=== PATIENT | female | born 1985 | race Caucasian/White ===

== ENCOUNTER → 2020-11-24 15:25 | Outpatient (CLI) | payer BC, SELFPAY ==
--- NOTE | ~2020-11-24 | XR_ITS ---
EXAMINATION: XR thoracic spine 2V DATE: 11/24/2020 16:29 INDICATION: Thoracic spine pain. TECHNIQUE: AP and lateral views of the thoracic spine were obtained. COMPARISON: Cervical and lumbar spine radiographs dated 11/24/2020 FINDINGS: As noted on separate report for the cervical spine there are bilateral C7 cervical ribs. There are 11 more caudal paired rib-bearing thoracic segments and (T1-T11). Some degree of levocurvature between C7 and T5. Sagittal alignment is normal. Vertebral body heights are normal. Mild disc height loss at T3-T4 through T9-T10. Visualized portions of the lungs are clear. No pleural effusion or pneumothorax . Cardiomediastinal silhouette is normal. IMPRESSION: 1. Mild upper thoracic levocurvature and mild mid to lower thoracic spondylosis. 2. Bilateral ribs at C7 as well as at T1-T11. Reviewed, dictated and finalized at location A. ICE LEARNING COORDINATOR IMPRESSION: 1. Mild upper thoracic levocurvature and mild mid to lower thoracic spondylosis . 2. Bilateral ribs at C7 as well as at T1-T11.
--- NOTE | ~2020-11-24 | XR_ITS ---
EXAMINATION: XR lumbar spine 2-3V DATE: 11/24/2020 16:29 INDICATION: Lumbar spine pain. TECHNIQUE: Anteroposterior and lateral views of the lumbar spine, and cone-down lateral view of the l umbosacral junction were obtained. COMPARISON: None. FINDINGS: There are 6 nonrib-bearing lumbar segments (L1-L6). Alignment is normal. Vertebral body heights are n ormal. Mild disc height loss at L6 S1. Mild facet osteoarthritis in the mid and lower lumbar spine. IMPRESSION: 1. 6 nonrib-bearing lumbar segments with minimal to mild lower lumbar spondylosis. Reviewed, dictated and finalized at location A. INUOUS WELD PIPE MILL SUPERVISOR IMPRESSION: 1. 6 nonrib-bearing lumbar segments with minimal to mild lower lumbar spondylos is.
--- NOTE | ~2020-11-24 | XR_ITS ---
EXAMINATION:XR_CERV2-3V_CR DATE: 11/24/2020 16:29 INDICATION: Central cervical spine pain. TECHNIQUE: AP, lateral, lateral swimmers and odontoid views of the cervical spine are provided. COMPARISON: None FINDINGS: Alignment is normal. Odontoid is intact. Normal atlantoaxial interval. Vertebral body heights are no rmal. Disc spaces are normal. Bilateral C7 cervical ribs. Mild to moderate bilateral facet osteoarthr itis at C7-T1. Mild facet osteoarthritis at a few of the more cephalad cervical levels. Prevertebral soft tissues are normal. The visualized apices of the lungs are clear. IMPRESSION: 1. Cervical facet osteoarthritis, mild to moderate at C7-T1 and mild in the more cephalad cervical sp ine. 2. Developmental variant C7 bilateral cervical ribs. Reviewed, dictated and finalized at location A. PROCUREMENT COORDINATOR IMPRESSION: 1. Cervical facet osteoarthritis, mild to moderate at C7-T1 and mild in the mor e cephalad cervical spine. 2. Developmental variant C7 bilateral cervical ribs.
--- NOTE | ~2020-11-24 | XR_ITS ---
EXAMINATION: XR pelvis 1-2V DATE: 11/24/2020 16:29 INDICATION: Bilateral hip pain. TECHNIQUE: An anteroposterior view of the pelvis was obtained. COMPARISON: None. FINDINGS: Alignment is normal. No fracture or suspected avascular necrosis. Very mild bilateral hip osteoarthri tis with minimal nonuniform joint space during at the superolateral aspect of the the left and right hips. Bilateral sacroiliac joint spaces are relatively preserved. A few phleboliths in the pelvis. IMPRESSION: 1. Very mild bilateral hip osteoarthritis. Reviewed, dictated and finalized at location A. TICE CONSULTANT
== END ==
PROVIDERS: Visit Provider Chiropractor
DX: M16.0 Bilateral primary osteoarthritis of hip (principal); M47.896 Other spondylosis, lumbar region; M47.894 Other spondylosis, thoracic region; M50.30 Other cervical disc degeneration, unspecified cervical region
CPT/HCPCS: 72040; 72070; 72100; 72170

== ENCOUNTER → 2021-10-19 01:26 | Outpatient (CLI) | payer OTHER, SELFPAY ==
[2021-10-19 21:23] LABS: SARS-CoV-2 RNA PCR Negative
== END ==
PROVIDERS: PCP Family Medicine; Visit Provider Physician Assistant
DX: R05.9 Cough, unspecified (principal); Z20.822 Contact with and (suspected) exposure to COVID-19
CPT/HCPCS: C9803; U0003; U0005

== ENCOUNTER 2022-06-30 11:44 | Emergency (ER) | payer BC, SELFPAY ==
--- NOTE | 2022-06-30 11:50 | ED.SKABFB ---
HPI - Skin/Abscess/Foreign Bdy General Chief complaint: Skin/Abscess/Foreign Body Stated complaint: red spots on body Time Seen by Provider: 06/30/22 11:51 Source: patient Mode of arrival: ambulatory Limitations: no limitations History of Present Illness HPI narrative: Ms. Arriaga is a 37-year-old female patient presenting to the clinic today with complaints of red spot on her inner thigh x 3 days. She reports she first noticed this on Tuesday. She reports that she has been around them sores over the last couple years. States she has seen her PCP as well as a field care coordinator and antibiotic prescriptions were prescribed for her however she did not finish either of these antibiotics. She reports that the field care coordinator cultured the area and it was negative for any MRSA or staph. Reports that it is draining a little bit today. States it is tender to touch. No fever or chills Related Data Allergies Allergy/AdvReac Type Severity Reaction Status Date / Time metoprolol AdvReac Severe fatigue, Verified 06/29/22 17:11 depression Review of Systems Review of Systems: Pertinent positives per HPI. Patient denies any fever, chills, rash, headache, visual changes, dizziness, cough, runny nose, sore throat, shortness of breath, chest pain, palpitations, nausea, vomiting, diarrhea, constipation, abdominal pain, or any urinary issues. PMFSH Social History Social History Smoking status: Never smoker Alcohol intake: current Substance use: never Gender identity (if verbalized by the patient): Female Comments At the time of my signature, I reviewed and agree with the nursing past medical, surgical, social, and family history. There is no relevant family history pertinent to the patient complaint. Exam Narrative: General: Well-developed, well nourished, in no apparent distress Head: Normocephalic, atraumatic. Cardio: Regular rate and rhythm, s1 and s2 normal, no murmur appreciated. Resp: Clear to auscultation bilaterally, no rhonchi, rales, wheezing or rubs. Integumentary: Kemp, warm, and dry, nonindurated mildly raised red open sore size of a andrew. Mild tenderness to palpation without any notable discharge upon expression. Does have a little yellowish discharge to the Band-aid Course Course Emergency Course: Portions of this record may have been created with voice recognition software. Level of Care: Express Care Visit Vital Signs Vital signs: Vital signs reviewed MDM - Skin/Abscess/Foreign Bdy MDM Narrative Medical decision making narrative: At the time of visit patient is resting comfortably on exam table. I suspect that the patient has a bacterial skin sore. I will place her on some topical mupirocin cream as well as discussed using this for her nares to help avoid recurrent infections if this is associated with MRSA. She voiced understanding and agrees to treatment plan. Differential Diagnosis Differential diagnosis: Likely abscess of skin or subcutaneous tissue, cellulitis and impetigo Discharge Plan Discharge Clinical Impression: Skin infection Patient Disposition: Home, Self-Care Condition: Stable Instructions: Antibiotic Form, Folliculitis (ED) Additional Instructions: Keep area clean and dry Keep wound covered if draining Apply mupirocin cream to the wound twice daily as well as intra nares twice daily x7 days May take Tylenol/Motrin as needed for pain Practice good handwashing technique Follow-up with your PCP in 7 days if symptoms persist or sooner if they worsen Prescriptions: New mupirocin 2 % ointment 1 applic topical BID 7 Days Qty: 22 0RF Rx Instructions: apply to right thigh wound as well as apply ointment inside nose using a q-tip BID x 7 days No Action metoprolol succinate 50 mg tablet extended release 24 hr 50 mg PO DIRECTED nifedipine 30 mg tablet extended release 24hr 30 mg PO
[2022-06-30 11:51] VITALS: BP 138/88; PULSE 81; RESP 16; TEMP 36.9; O2SAT 100
== END 2022-06-30 12:11 | disposition home or self-care (01) ==
PROVIDERS: Emergency Provider Nurse Practitioner Family; PCP Family Medicine
DX: L08.9 Local infection of the skin and subcutaneous tissue, unspecified (principal); I10 Essential (primary) hypertension
CPT/HCPCS: 99213; G0463

== ENCOUNTER 2024-12-01 13:17 | Emergency (ER) | payer OTHER, SELFPAY ==
--- OUTSIDE RECORDS SUMMARY | 2024-12-01 13:19 | XMS_ITS | Referral Summary ---
Author Organization [facility] Address [address] [place] [address] Care Team Providers Care Carpet Installer Name Role Phone Arian Ellis MD Primary Care Provider [phone] Allergies Active Allergy Reactions Criticality Noted Date Comments Sulfa (Sulfonamide Antibiotics) Other (See comments) Low 11/30/2021 Urinary frequency Medications loratadine (CLARITIN) 10 mg tablet Take 1 tablet (10 mg total) by mouth daily Active acetaminophen 500 mg capsuleIndication s:Fever,Pain Take 2 capsules (1,000 mg total) by mouth every 6 (six) hours as needed for pain 90 tablet 1 2 Active NIFEdipine (NIFEdipine XL) 30 mg 24 hr tabletIndications :Chronic hypertension Take 1 tablet (30 mg total) by mouth daily 90 tablet 2 Active zolpidem (AMBIEN) 5 mg tablet 3 Active Active Problems Problem Noted Date Diagnosed Date Vaginal delivery 01/03/2022 Overview (01/07/2022): # ID: Afebrile. No signs/symptoms of infection. #COVID-19: COVID recovered # Heme: EBL 350 mL. No symptoms acute blood loss anemia. # cHTN: On [id number]. Blood pressures well controlled. Patient remains asymptomatic . Admission CBC/CMP wnl, UPC unable to calculate. Enrolled in home BP monitoring. # Anxiety: On no medications, SW consult PP for recourses. Consult placed. # GI/: Tolerating PO. Voiding spontaneously. # Pain: Controlled with above regimen. # Post DVT prophylaxis: The patient has the following MAJOR risk factors none and the following MINOR risk factors BMI 30-39 and age >/= 35. enoxaparin 40 mg daily ordered for VTE prophylaxis. # MOC: Declines until visit # MOF: # COVID Vaccination Status: S/p COVID infection 10/17. Previously received primary series, due for booster. Recommendations reviewed with pt, she accepts booster dose, ordered. # Disposition: Follow up task not sent. Desires discharge home today. Resolved Problems Problem Noted Date Diagnosed Date Resolved Date Supervision of other normal , antepartum 02/18/2022 Overview (01/10/2022): -AMA -Chronic hypertension--Nifedipine 30mg XL, plan ASA, serial growth ( per US starting @ 24wks), NSTs at 32 weeks; growth 31% at 32 weeks -01/07/22 PP BP's 150's/high 90's- Nifed XL to 60 mg HS, if cont. To be >150 increase to 90 mg q HS Hx of anxiety disorder, exac by unplanned , + panic attacks, getting better. Unplanned , desired, FOB with min involvement - Plan PBHS - Low lying placenta, pelvic rest reviewed 08/26, Resolved @ 24 wk US - COVID+ 10/17/2021 -rrIOL @ 38.2, on 01/03/22 @ 1999 [x] Labs: completed, UTI @ NOB, macrobid 07/13, BECKI negative [x] Genetic Screening: nml cfDNA, considering invitae [x] Baby ASA:recommended [x] 1hr GCT at 24-28wks: nml, 92 [x] Tdap (27-36wks):1/6/-hr [x] Flu Shot: 12-hr [] Rhogam (if Rh neg): n/a A+ [x] GBS at 36 wks: neg [x] [] control method: plans abstinence [x] 39 weeks discussion of IOL, scheduled 01/03/22 @ 1999 [x] Mode of delivery: plan [] For C/S bottle of CHG 4% and hand out provided @ 36wks Boy, circ+, , Bard and Didrikson for ped. Teaching: [x] 1st visit [x] 28-30 week [x] 36 week Immunizations Name Administration Dates Next Due Influenza, Quadrivalent, Sandy l Culture-based MDCK, Preservative Free, Antibiotic Free, Intramuscular 08/28/2021 Pfizer SARS-CoV-2 Monovalent Vaccination (12+ Yrs) FRANCO-READY TO USE 01/07/2022 Tdap 10/22/2021 Social History Tobacco Use Types Packs/Day Years Used Date Smoking Tobacco: Never Smokeless Tobacco: Never Tobacco Cessation:Counseling Given: Not Answered Alcohol Use Standard Drinks/Week Comments Yes 0 (1 standard drink = 0.6 oz pur e alcohol) Humiliation, Afraid, Rape, and Kick questionnair e Answer Date Recorded Fear of Current or Ex-Partner No Emotionally Abused No 11/24/2020 Physically Abused No 11/24/2020 Sexually Abused No 11/24/2020 Social Connection and Isolat ion Panel [NHANES] Answer Date Recorded In a typical week, how many times do you talk on the phone with family, friends, or neighbors? More than three times a week 01/06/2022 How often do you get togethe r with friends or relatives? More than three times a week 01/06/2022 How often do you attend chur or muslim services? Never 01/06/2022 Do you belong to any clubs o r organizations such as samaritan groups, unions, fraternal or athletic groups, or school groups? No 01/06/2022 How often do you attend meet ings of the clubs or organizations you belong to? Never 01/06/2022 Are you , , di vorced, , never , or living with a partner? Never 01/06/2022 AUDIT-C Answer Date Recorded Q1: How often do you have a drink containing alc ohol? Never 01/03/2022 Average Number of Drinks Not on file 022 Q3: How often do you have si x or more drinks on one occasion? Never 01/03/2022 Overall Financial Resource Strain (CARDIA) Answe r Date Recorded How hard is it for you to pa y for the very basics like food, housing, medical care, and heating? Not hard at all 01/06/2022 PHQ-2 Answer Date Recorded PHQ-2 Total Score (If total score is 3 or more points, staff should administer the PHQ-9) 0 03/08/2023 Exercise Vital Sign Answer Date Recorde d Days of Exercise per Week 3 days 2020 Minutes of Exercise per Session 40 min 11/24/2020 Hunger Vital Sign Answer Date Recorded Within the past 12 months, y ou worried that your food would run out before you got the money to buy more. Never true 01/07/20 22 Within the past 12 months, t he food you bought just didn't last and you didn't have money to get more. Never true 01/06/2022 PRAPARE - Transportation Answer Date Re corded In the past 12 months, has l ack of transportation kept you from medical appointments or from getting medications? No 12/16 In the past 12 months, has l ack of transportation kept you from meetings, work, or from getting things needed for daily living? No 01/06/2022 Housing Stability Vital Sign Answer Darío e Recorded In the last 12 months, was t here a time when you were not able to pay the mortgage or rent on time? No 01/06/2022 In the last 12 months, how many places have you lived? 1 01/06/2022 In the last 12 months, was t here a time when you did not have a steady place to sleep or slept in a senior care (including now)? No 01/06/2022 Geneva Depression Scale Answer Date Recorded Geneva Depression Scale Total 9 02/18/2022 The thought of harming myself has occurred to me . 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 on file Not on f ile Last Filed Vital Signs Vital Sign Reading Time Taken Comments Blood Pressure 132/76 03/08/2023 9:31 AM CDT Pulse 72 03/08/2023 9:31 AM CDT Temperature 36.9 C (98.4 F) 03/08/2023 9:31 AM CDT Respiratory Rate 18 01/07/2022 8:17 AM CDT Oxygen Saturation 97% 03/08/2023 9:31 AM CDT Inhaled Oxygen Concentration - - Weight 81.6 kg (180 lb) 03/08/2023 9:31 AM CDT Height 167.6 cm (5' 6 ) 03/08/2023 9:31 AM CDT Body Mass Index 29.05 03/08/2023 9:31 AM CDT Plan of Treatment Not on file Procedures Procedure Name Priority Date/Time Associated Diagnosis Comments HEPATITIS C ANTIBODY Routine 07/04/2021 11:23 AM CDT Supervision of other normal , antepartum HM PAP SMEAR WITH HPV Routine 01/27/2018 from Last 3 Months or Most Recently Relevant to Health Maintenance Results * Hepatitis C antibody (07/04/2021 11:23 AM CDT) Hep C Ab NON-REACTI VE NON-REACT MELISSA [facility] SIGNAL TO CUT-OFF 0.00 <1.00 [facility] Comment: HCV antibody was non-reactive. There is no laboratory evidence of HCV infection. In most cases, no further action is required. However, if recent HCV exposure is suspected, a test for HCV RNA (test code 28981) is suggested. For additional information please refer to http://education.[employer]/faq/QVC28s0 (This link is being provided for informational/ educational purposes only.) Blood specimen (specimen) 07/04/2021 11:23 AM CDT 07/04/2021 11:24 AM CDT us Paty Chacon MD LAB MICROBIOLO GY - GENERAL ORDERABLES Final Result [facility] [id number] [id number] * HM PAP SMEAR WITH HPV (01/27/2018) Pap smear Normal us Historical Provider MD HEALTH MAINTENANCE Final Result from Last 3 Months or Most Recently Relevant to Health Maintenance Insurance Dealer [employer] [facility] [employer]ANS Address: [address] [place] [address] [employer] [facility] [employer]ANS Address: [facility] [address] [place] [address] Advance Directives For more information, please contact: [phone] * Full Code (Latest Code Status on File) Date Activated Date Inactivated Comments 01/05/2022 9:13 AM 01/07/2022 7:18 PM * Full Code Date Activated Date Inactivated Comments 01/03/2022 8:15 PM 01/05/2022 9:13 AM Full CPR in case of cardiopulmonary arrest Care Teams Carpet Installer Relationship Specialty Start Date End Date Arian Ellis MD PCP - General Family Medicine 05/31/19
--- OUTSIDE RECORDS SUMMARY | 2024-12-01 13:20 | XMS_ITS | Clinical Summary ---
Author Organization [facility] Address [address] [place] [address] Care Team Providers Care Retort Cooler Name Role Phone Arian Ellis MD Primary Care Provider [phone] Allergies Active Allergy Reactions Criticality Noted Date [...] acute blood loss anemia. # cHTN: On [id number]. Blood pressures well controlled. Patient remains asymptomatic [...] Yrs) FRANCO-READY TO USE 01/07/2022 Tdap 10/22/2021 Surgical History Surgery Date Site/Laterality Comments NO PAST SURGERIES Medical History Medical History Date Comments Hypertension Abnormal Pap smear of cervix HPV (human papilloma virus) infection Family History Medical History Relation Name Comments No Known Problems Father Breast cancer Mother Relation Name Status Comments Father Alive Mother Alive Social History Tobacco Use Types Packs/Day Years [...] week 01/06/2022 How often do you attend [facility] or religion services? Never 01/06/2022 Do you belong to any clubs o r organizations such as adventist groups, unions, fraternal or athletic groups, or [...] money to buy more. Never true 01/07/20 Within the past 12 months, t he [...] place to sleep or slept in a detention (including now)? No 01/06/2022 Rousseau Depression Scale Answer Date Recorded Rousseau Depression Scale Total 9 02/18/2022 The thought of harming myself has occurred to me . 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 on f ile Obstetrics History Para Term AB IAB SAB Ectopic Multiple Livin g Live Births 1 1 1 0 0 0 0 0 0 1 1 Date Outcome GA Total Labor Labor/2nd/3rd Weight Sex Type Anes PTL Massiel A1 A5 Name Clin 2021 Term 38w 4d 34h 19m 34h 07m/0h 04m/0h 08m 3.34 kg (7 lb 5.8 oz) M Vag-S pont Epidur al N Livin g 8 9 HEWIT T,BOY KIMBE KARLI Tomas, Jackelyn win MD Complications:None Delivery Location:[facility] Main C ampus ([facility]LD) Comments 01/05/2290-YMFX-GK-boy, del aft er 2 contx.'s Last Filed Vital Signs Vital Sign Reading [...] 03/08/2023 9:31 AM CDT Plan of Treatment Health Maintenance Due Date Last Done Comments Varicella Vaccines (1 of 2 - 13+ 2-dose series) 1998 Hepatitis B Screening 2003 Cervical Cancer Screening 01/27/2019 01/27/2018 Regular Well Visit/Exam 18-64 11/24/2021, 03/20/2019 Depression Screening 03/08/2024 03/08/2023 Covid-19 Vaccine (2 - 2023-2 5 season) 2024 01/07/2022 Influenza Vaccine (#1) 2024 08/28/2021 DTaP/Tdap/Td Vaccine (3 - Td or Tdap) 10/22/2031 10/22/2021, 01/29/2020 Hepatitis C Screening Completed 07/04/2021 HPV Vaccines Aged Out No longer eligi ble based on patient's age to complete this topic Pneumococcal vaccine <65 Aged Out No longer eligible based on patient's age to complete this topic Procedures Procedure Name Priority Date/Time Associated Diagnosis Comments HEPATITIS C ANTIBODY Routine 07/04/2021 11:23 AM CDT Supervision of other normal , antepartum PAP SMEAR WITH HPV Routine 01/27/2018 from Last 3 Months or Most Recently Relevant to Health Maintenance Results * Hepatitis C antibody (07/04/2021 11:23 AM CDT) Hep C Ab NON-REACTI VE NON-REACT MELISSA [facility] SIGNAL TO CUT-OFF 0.00 <1.00 [facility] Comment: HCV antibody was non-reactive. There is no laboratory evidence of HCV infection. In most cases, no further action is required. However, if recent HCV exposure is suspected, a test for HCV RNA (test code 36631) is suggested. For additional information please refer to http://education.[employer]/faq/ITY44w1 (This link is being provided for informational/ educational purposes only.) Blood specimen (specimen) 07/04/2021 11:23 AM CDT 07/04/2021 11:24 AM CDT us Paty Chacon MD LAB MICROBIOLO GY - GENERAL ORDERABLES Final Result [facility] [id number] [id number] * PAP SMEAR WITH HPV (01/27/2018) HM Pap smear Normal us Historical Provider HEALTH MAINTENANCE Final Result from Last 3 Months or Most Recently Relevant to Health Maintenance Insurance [employer] PL[employer] Address: [facility] [address] [place] [address] [facility] [employer] Address: [address] [place] [address] Advance Directives For more information, please contact: [phone] * Full Code (Latest Code Status on File) Date Activated Date Inactivated Comments 01/05/2022 9:13 AM 01/07/2022 7:18 PM * Full Code Date Activated Date Inactivated Comments 01/03/2022 8:15 PM 01/05/2022 9:13 AM Full CPR in case of cardiopulmonary arrest Care Teams Retort Cooler Relationship Specialty Start Date End Date Arian Ellis MD PCP - General Family Medicine 05/31/19
[2024-12-01 13:24] VITALS: BP 141/80; PULSE 77; RESP 18; TEMP 36.6; O2SAT 100
--- NOTE | 2024-12-01 13:59 | ED_ITS ---
HPI - URI/Sore Throat General Chief Complaint: Upper Respiratory Infection Stated Complaint: flu symptoms Time Seen by Provider: 12/01/24 13:19 Source: patient Mode of arrival: ambulatory Limitations: no limitations History of Present Illness HPI Narrative: Patient is a 39-year-old female that presents with 2 days of scratchy throat nonproductive cough and fever. Highest fever was 103 yesterday. Patient works in respiratory therapy. Denies any sore throat, nausea, vomiting, diarrhea. Related Data Allergies Allergy/AdvReac Type Severity Reaction Status Date / Time metoprolol AdvReac Severe fatigue, Verified 12/01/24 13:40 depression Sulfa (Sulfonamide AdvReac Insomnia Verified 12/01/24 13:40 Antibiotics) Review of Systems Review of Systems: All systems reviewed & are unremarkable except as noted in HPI and below Constitutional: Constitutional: Denies chills, Denies fatigue, Reports fever(s), Denies headache(s), Denies malaise and Denies weakness Eyes: Eyes: Denies blurry vision, Denies itchy eyes and Denies loss of vision ENT: Denies otalgia, Denies headache(s), Denies nasal congestion, Denies sinus pain and Reports other (scratchy throat) Cardiovascular: Cardiovascular: Denies chest pain, Denies irregular heart rhythm and Denies dyspnea Respiratory: Respiratory: Reports cough and Denies dyspnea Gastrointestinal: Gastrointestinal: Denies abdominal pain, Denies diarrhea, Denies nausea and Denies vomiting Musculoskeletal: Musculoskeletal: Denies back pain, Denies myalgias and Denies arthralgias Integumentary/Breasts: Skin/Breast: Denies pruritus and Denies rash Neurologic: Denies headache(s), Denies loss of vision and Denies weakness Psychiatric: Psychiatric: Reports no additional psychiatric complaints Endocrine: Endocrine: Denies fatigue Allergic/Immunologic: Allergic/Immunologic: Denies itchy eyes PMFSH Social History Social History Smoking status: Never smoker Alcohol intake: current Alcohol use details: rarely Substance use: never Substance use type: does not use Do You Feel Safe in your Home?: Yes Lack of Transportation: No Lack of Food: Never True Current Housing: I Have Housing Concerned About Future Housing: No Difficulty Paying Gas/Electric Bills: No Difficulty Paying for Meds: No Currently Unemployed: No Education: Bachelor's Degree Difficulty w/ Childcare or Family Care: No Occupation/Education: student Gender identity (if verbalized by the patient): Female Comments At time of signature, agree with nursing past medical, surgical, social and family history. There is no relevant family history pertinent to the presenting complaint. Exam Const: General: cooperative, healthy appearing, comfortable, no acute distress and well nourished Nutritional Appearance: well nourished Orientation/consciousness: patient oriented x3 Limitations: no limitations HENMT: Head: normal to inspection, normocephalic and atraumatic Ears: hearing grossly normal bilaterally, external ears normal, TM's normal bilaterally, EAC's normal and no periauricular adenopathy Face/Nose/Sinus: Normal external nose present, normal facial exam, sinuses nontender and face symmetric Face and sinus: normal facial exam, sinuses nontender and face symmetric Mouth: Yes Normal oral and palatal mucosa present, Yes lip normal, Yes tongue normal, Yes Normal salivary glands and ducts present, Yes oropharynx normal and Yes moist mucous membranes Teeth and gingiva: dentition normal Throat: tonsils normal, uvula midline and posterior oropharynx abnormal erythema Eyes: General: appearance normal, both eyes and all related structures Alignment and Position: alignment normal and position normal Periorbital: periorbital findings normal Eyelids: eyelids normal Pupils: Equal, round and reactive pupils present Neck: Neck: normal visual inspection, full ROM, no lymphadenopathy and supple Chest: Chest palpation & inspection: normal inspection of the chest and normal palpation of entire chest wall Resp: Effort & Inspection: normal respiratory effort and able to speak in complete sentences Auscultation: clear to auscultation bilaterally, no crackles, no rales, no rhonchi and no wheezes Cardio: Rate: regular rate Rhythm: regular rhythm Heart sounds: S1 normal heart sound present and S2 normal heart sound present GI: Inspection: normal to inspection Skin: General skin exam: normal color and no rashes or lesions noted Neuro: General: patient oriented x3 and moves all extremities Cranial nerves: Yes Equal, round and reactive pupils present Speech: normal speech Gait exam (Neuro): Normal gait present Extrem: General: normal to inspection, full ROM and no edema Psych: Appearance: grossly normal and well kempt Mental Status: mental status grossly normal Speech and movement: Normal speech and movement present Affect: normal affect Attitude: cooperative Thought process: Normal thought process present Course Course Emergency Course: Discharge instructions reviewed with patient, as well as provided in writing per nursing staff. The instructions also include specific and strict return/GO TO THE ER as well as f/u information. All questions have been answered, and the patient deny any further questions with discharge and discharge plan. Portions of this record may have been created with voice recognition software Level of Care: Express Care Visit Vital Signs Vital signs: Vital Signs Temperature 36.6 C 12/01/24 13:24 Pulse Rate 77 12/01/24 13:24 Respiratory Rate 18 12/01/24 13:24 Blood Pressure 141/80 H 12/01/24 13:24 Pulse Oximetry 100 12/01/24 13:24 Oxygen Delivery Room Air 12/01/24 13:24 Temperature 36.6 C 12/01/24 13:24 Pulse Rate 77 12/01/24 13:24 Respiratory Rate 18 12/01/24 13:24 Blood Pressure 141/80 H 12/01/24 13:24 Pulse Oximetry 100 12/01/24 13:24 Oxygen Delivery Room Air 12/01/24 13:24 Reviewed MDM - URI/Sore Throat MDM Narrative Medical decision making narrative: Pt well hydrated appearing, in no respiratory distress, hemodynamically stable. Recommend supportive care. The patient is stable at time of discharge the clinical impression was discussed and the patient was given the opportunity to ask questions, which were addressed as completely as possible given the information available at present. Anticipatory guidance and return to care precautions were discussed and the importance of primary care follow-up was stressed and encouraged. The patient voiced understanding of the plan, indications to return, and the need for follow-up. Differential diagnosis considered: Bronchitis, Pringle virus, strep pharyngitis, allergic rhinitis, upper respiratory tract infection, sinusitis, rhinosinusitis, nasopharyngitis. viral pharyngitis, otitis media, otitis externa, otitis effusion, foreign body, cerumen impaction, viral syndrome, and influenza.? Exam findings show no acute concerns or changes; patient is non-toxic appearing and is in no distress.? Patient is appropriate for outpatient treatment and follow- up.? Medical Records Attestation: I reviewed the patient's medical records. Lab Data Attestation: I reviewed the patient's lab results. Lab results narrative: Patient positive for influenza A. Negative for influenza B, strep and COVID Discharge Plan Discharge Clinical Impression: Influenza Patient Disposition: Home, Self-Care Condition: Stable Instructions: Influenza (ED) Additional Instructions: Were positive for influenza A. Your Covid is negative Your symptoms are due to a viral illness, which is not treated with antibiotics. Viral symptoms can be present for up to a few weeks. -For fever/pain, you may take: Tylenol 650-1000mg by mouth every 4-6 hours. Do not exceed 4000mg in 24 hours. Advil (Ibuprofen) 600 mg by mouth every 6 hours. Do not exceed 2400mg in 24 hours. 8 AM: Tylenol 11 AM: Ibuprofen 2 PM: Tylenol 5 PM: Ibuprofen 8 PM: Tylenol 11 PM: Ibuprofen 2 AM: Tylenol 5 AM: Ibuprofen -Antihistamine medication such as Benadryl/Zyrtec at night and Claritin/Kassi during the day can help improve symptoms. -Use Flonase twice a day for 5 days then daily to help reduce the inflammation and dry up your sinuses. -You can also use Sudafed behind the pharmacy counter(12 or 24 hour). Be sure to drink plenty of water with these medications at least 8 ounces with every dose and it is important to drink 8 to 10 glasses of water per day. Water is a natural decongestant -Eat and drink things that are easy to swallow, like tea or soup, or popsicles. -Oral rinses such as: Salt water gargles and/or may use topical anesthetic (eg. Chloraseptic spray) or lozenges to relieve dryness or throat pain). -Frequent hand washing or hand dental floss packer is one of the best ways to prevent spread of infection. -Using a vaporizer or humidifier at night will also help thin secretions and help with coughing up phlegm. -Follow up with primary care provider in 3-5 days if condition is not improving - For new or worsening symptoms go directly to the nearest ER Your blood pressure was elevated above 120/80 today at Urgent Care. This puts you above the threshold for follow up visit with a primary care provider. High blood pressure does not usually cause any symptoms, however it may lead to kidney failure, stroke, heart disease just to name a few if untreated . Many people are anxious when seeing a provider or nurse. As a result, you are not diagnosed with hypertension at this time unless your blood pressure is persistently high at two office visits at least one week apart. Some things that can help lower blood pressure are lifestyle modifications, such as light exercise, decreased salt in diet, and weight loss. It is important to follow up with a PCP about this within 1 week. Patient Language: Luxembourgish Prescriptions: No Action lisinopril 20 mg tablet 20 mg PO DAILY Qty: 90 3RF trazodone 50 mg tablet 50 mg PO QHS PRN (Reason: insomnia) Qty: 90 3RF Follow-up/Referrals: Shira Ellis MD [Primary Care Provider] - 3 Days Stand Alone Forms: Work/School Release IP Time of Disposition: 14:16
[2024-12-01 14:27] LABS: EDCOVIDSCREEN Negative (Negative); EDINFLUASCREEN Positive (Negative); EDINFLUBSCREEN Negative (Negative); EDSTREPNEGPOS1 Negative (Negative)
--- NOTE | 2024-12-02 14:31 | PC.NURSE ---
1429 - [facility] for Walfarzadeens; tessalon 100mg BID #20 NR per Sonal Romero.
== END 2024-12-01 14:20 | disposition home or self-care (01) ==
PROVIDERS: Emergency Provider Nurse Practitioner Family; PCP Family Medicine
DX: J10.1 Influenza due to other identified influenza virus with other respiratory manifestations (principal); Z20.822 Contact with and (suspected) exposure to COVID-19; I10 Essential (primary) hypertension
CPT/HCPCS: 87081; 87426; 87804; 87880; 99213; G0463

== ENCOUNTER 2025-08-01 15:21 | Outpatient (CLI) | payer OTHER, SELFPAY ==
--- OUTSIDE RECORDS SUMMARY | 2025-08-01 17:28 | XMS_ITS | Clinical Summary ---
[facility] Address [address] [place] [address] Care Team Providers [employer] Worker Name Role Phone Arian Ellis MD Primary Care Provider [phone] Allergies Active Allergy Reactions Criticality Noted Date [...] acute blood loss anemia. # cHTN: On [id number]. Blood pressures well controlled. Patient remains asymptomatic [...] [x] 28-30 week [x] 36 week Immunizations Immunization Administration Dates Next Due Influenza, Quadrivalent, Sandy [...] Sexually Abused No 11/24/2020 Social Connection and Isolation Panel Answer Date Recorded In a typical week, how many times do you talk on the phone with family, friends, or neighbors? More than three times a week 01/06/2022 How often do you get togethe r with friends or relatives? More than three times a week 01/06/2022 How often do you attend [facility] or restorationism services? Never 01/06/2022 Do you belong to any clubs o r organizations such as faith groups, unions, fraternal or athletic groups, or [...] place to sleep or slept in a halfway (including now)? No 01/06/2022 [place] Depression Scale Answer Date Recorded [place] Depression Scale Total 9 02/18/2022 The thought of harming myself has occurred to me . Never 02/18/2022 Comments Unknown Sex and Gender Information Value Date Recorded Sex Assigned at Not on file Legal Sex Female 11:24 PM [employer]LL [employer] Gender Identity Not on file Sexual Orientation [...] N Livin g 8 9 HEWIT T,BOY Jackelyn Machado MD Complications:None Delivery Location:[facility] ([facility]) Comments 01/05/2206-[id number]-boy, del aft er 2 contx.'s Last Filed [...] 9:31 AM CDT Height 167.6 cm (5' 6) 03/08/2023 9:31 AM CDT Body Mass Index 29.05 03/08/2023 9:31 AM CDT Plan of Treatment Health Maintenance Due Date Last Done Comments Varicella Vaccines (1 of 2 - 13+ 2-dose series) 1998 Hepatitis B Screening 2003 HPV Vaccines (1 - 3-dose SCD M series) 2012 Cervical Cancer Screening 01/27/2019 01/27/2018 Regular Well Visit/Exam 18-64 11/24/2021, 03/20/2019 Depression Screening 03/08/2024 03/08/2023, 02/18/2022 Covid-19 Vaccine (2 - 2024-2 6 season) 2025 01/07/2022 Influenza Vaccine (#1) 2025 08/28/2021 Breast Cancer Screening-Mammogram 01/29/2026 01/29/2025 DTaP/Tdap/Td Vaccine (3 - Td or Tdap) 10/22/2031 10/22/2021, 01/29/2020 Hepatitis C Screening Completed 07/04/2021 Pneumococcal vaccine <65 Aged Out No longer eligible based on patient's age to complete this topic Procedures Procedure Name Priority Date/Time Associated Diagnosis Comments SCREENING MAMMOGRAM BILATERAL W JULIÁN Schedule Routine, Read Routine (OP Routine) 01/29/2025 4:18 PM CDT Screening mammogram, encounter for HEPATITIS C ANTIBODY Routine 07/04/2021 11:23 AM CDT Supervision of other normal , antepartum HM PAP SMEAR WITH HPV Routine 01/27/2018 from Last 3 Months or Most Recently Relevant to Health Maintenance Results * Screening Mammogram Bilateral W Julián (01/29/2025 4:18 PM CDT) Anatomical Region Laterality Modality Breast Bilateral Mammography Narrative 01/30/2025 1:38 PM CDT Mammogram Technique: Bilateral Digital Breast Tomosynthesis, Bilateral C-view 2D Screening mammogram. Views obtained: bilateral craniocaudal and bilateral mediolateral oblique. Computer Aided Detection was performed. Mammogram Findings: This is a baseline study. The breasts are heterogeneously dense, which may obscure small masses. There is no suspicious abnormality in either breast. Impression: There is no mammographic evidence of malignancy. Annual screening mammography is recommended. If supplemental screening is desired, breast MRI would be recommended in this patient with heterogeneously dense breasts. OVERALL FINAL ASSESSMENT: BI-RADS CATEGORY 1: Negative. Procedure Note Mariah Manriquez MD - 01/30/2025 Mammogram Technique: Bilateral Digital Breast Tomosynthesis, Bilateral C-view 2D Screening mammogram. Views obtained: bilateral craniocaudal and bilateral mediolateral oblique. Computer Aided Detection was performed. Mammogram Findings: This is a baseline study. The breasts are heterogeneously dense, which may obscure small masses. There is no suspicious abnormality in either breast. Impression: There is no mammographic evidence of malignancy. Annual screening mammography is recommended. If supplemental screeningis desired, breast MRI would be recommended in this patient with heterogeneously dense breasts. OVERALL FINAL ASSESSMENT: BI-RADS CATEGORY 1: Negative. Self Screening Mammogram IMG MAMMO PROCEDURES Fi nal Result * Hepatitis C antibody (07/04/2021 11:23 AM CDT) Hep C Ab NON-REACTI VE NON-REACT MELISSA [facility] SIGNAL TO CUT-OFF 0.00 <1.00 [facility] Comment: HCV antibody was non-reactive. There is no laboratory evidence of HCV infection. In most cases, no further action is required. However, if recent HCV exposure is suspected, a test for HCV RNA (test code 86640) is suggested. For additional information please refer to http://education.nextsocial/faq/PEI00e3 (This link is being provided for informational/ educational purposes only.) Blood specimen (specimen) 07/04/2021 11:23 AM CDT 07/04/2021 11:24 AM CDT Paty Chacon MD LAB MICROBIOLO GY - GENERAL ORDERABLES Final Result [facility] [address] [place] [address] * PAP SMEAR WITH HPV (01/27/2018) HM Pap smear Normal Historical Provider HEALTH MAINTENANCE Final Result from Last 3 Months or Most Recently Relevant to Health Maintenance Insurance [facility] [employer] Address: [facility] [id number] [place] [address] [facility] Advance Directives For more information, please contact: [phone] * Full Code (Latest Code Status on File) Date Activated Date Inactivated Comments 01/05/2022 9:13 AM 01/07/2022 7:18 PM * Full Code Date Activated Date Inactivated Comments 01/03/2022 8:15 PM 01/05/2022 9:13 AM Full CPR in case of cardiopulmonary arrest Care Teams [employer] Worker Relationship Specialty Start Date End Date Arian Ellis MD PCP - General Family Medicine 05/31/19
[2025-08-01 19:56] LABS: Influenza A QL RT-PCR Negative (Negative); Influenza B QL RT-PCR Negative (Negative); RSV RNA, RT-PCR Negative (Negative); SARS-CoV-2 RNA PCR Negative (Negative)
== END 2025-08-01 15:22 | disposition home or self-care (01) ==
LOC: ANHGOSHLAB 15:21
PROVIDERS: PCP Family Medicine; Visit Provider Family Medicine
DX: J06.9 Acute upper respiratory infection, unspecified (principal); R53.83 Other fatigue; Z20.822 Contact with and (suspected) exposure to COVID-19
CPT/HCPCS: 87637